=== PATIENT | female | born 1990 | race Caucasian/White ===

== ENCOUNTER 2018-05-20 19:58 | Emergency (ER) | payer OTHER ==
[~2018-05-20] VITALS: Ht 160 cm; Wt 63.5 kg
[~2018-05-20 19:58] MED LIST: ACETAMINOPHEN-1 EAC1 PO; CIPROFLOXACIN500 M1 PO; NORCO 5-325 TA1 EACH PO; PERCOCET 5-3251 EACH PO; PREDNISONE 20 M20 M1 PO; TRAMADOL 50 MG50 MG PO
[2018-05-20] MEDS ORDERED: IBUPROFEN 800800 MG PO (20:29)
[2018-05-20] MEDS ORDERED: TRAMADOL 50 MG50 MG PO (20:29)
[2018-05-20 20:38] VITALS: BP 120/78
== END 2018-05-20 20:39 | disposition home or self-care (01) ==
LOC: M.ERS 19:58
DX: S83.8X1A Sprain of other specified parts of right knee, initial encounter (principal); X58.XXXA Exposure to other specified factors, initial encounter; Y93.89 Activity, other specified; Y92.89 Other specified places as the place of occurrence of the external cause; Y99.8 Other external cause status

== ENCOUNTER 2019-09-17 14:15 | Emergency (ER) | payer OTHER ==
[~2019-09-17] VITALS: Ht 160 cm; Wt 72.6 kg
[~2019-09-17 14:15] MED LIST changes: +IBUPROFEN 800800 MG PO
[2019-09-17] MEDS ORDERED: TYLENOL WITH CO1 TA1 PO (15:40)
[2019-09-17] MEDS ORDERED: PROAIR HFA8.5 GM INH (15:40)
[2019-09-17] MEDS ORDERED: MEDROLDOSEPACK PO (15:40)
[2019-09-17] MEDS ORDERED: ZPAK PO (15:40)
[2019-09-17] MEDS ORDERED: PROMETHAZINE V120 ML PO (15:40)
[2019-09-17 15:44] LABS: INFLUENZA A ANTIGEN Negative (Negative); INFLUENZA B ANTIGEN Negative (Negative)
[2019-09-17 15:55] VITALS: BP 128/82
== END 2019-09-17 15:55 | disposition home or self-care (01) ==
LOC: M.ERS 14:15
PROVIDERS: Physician Assistant
DX: J20.9 Acute bronchitis, unspecified (principal); F17.200 Nicotine dependence, unspecified, uncomplicated; Z98.890 Other specified postprocedural states

== ENCOUNTER 2020-02-23 15:17 | Inpatient (IN) | payer OTHER ==
[~2020-02-23] VITALS: Ht 162.6 cm; Wt 78.0 kg
[~2020-02-23 15:17] MED LIST changes: +MEDROLDOSEPACK PO; +PROAIR HFA8.5 GM INH; +PROMETHAZINE V120 ML PO; +TYLENOL WITH CO1 TA1 PO; +ZPAK PO
[2020-02-23 15:19] VITALS: BP 132/82
[2020-02-23 16:00] LABS: URINE BLOOD TRACE (Negative); URINE CLARITY CLEAR; URINE COLOR YELLOW; URINE GLUCOSE-RANDOM NEGATIVE (Negative); URINE KETONES NEGATIVE (Negative); URINE LEUKOCYTES-REFLEX 1+ (Negative); URINE NITRITE-REFLEX NEGATIVE (Negative); URINE PROTEIN NEGATIVE (Negative); URINE SPECIFIC GRAVITY 1.025 (1.005-1.030)
[2020-02-23 16:02] LABS: ICTOTEST (BILI CONFIRMATORY) Negative (Negative); URINE BILIRUBIN 1+ (Negative)
[2020-02-23 16:10] LABS: CASTS None Seen /LPF (None Seen); CRYSTALS None Seen /LPF (None Seen); SQUAMOUS 0-3 Few /LPF (0-3); URINE RBC 0-2 Rare /HPF (0-2)
[2020-02-23 16:11] LABS: URINE WBC-REFLEX 6-15 Few /HPF (0-5)
[2020-02-23 16:11] LABS: ABSOLUTE BASOPHILS 0.1 thou/uL (0.0-0.2); ABSOLUTE EOSINOPHILS 0.1 thou/uL (0.0-0.7); ABSOLUTE LYMPHOCYTES 1.9 thou/uL (0.8-5.3); ABSOLUTE MONOCYTES 0.5 thou/uL (0.0-1.2); ABSOLUTE NEUTROPHILS 6.4 thou/uL (1.6-8.1); BASOPHILS 0.6 %; EOSINOPHILS 1.3 %; HEMATOCRIT 40.3 % (37.0-47.0); HEMOGLOBIN 13.8 gm/dL (12.0-15.0); MCH 29.8 pg (26.0-34.0); MCHC 34.3 g/dL (28.0-37.0); MCV 86.8 fL (80.0-100.0); MONOCYTES 5.6 %; MPV 8.4 fl. (7.2-11.1); NUCLEATED RBCS 0 /100WBC; PLATELET COUNT* 237 thou/uL (150-400); POLYS 71.5 %; RBC 4.64 mil/uL (4.20-5.00); RDW-CV 13.3 % (10.5-14.5); WBC 8.9 thou/uL (4.0-11.0)
[2020-02-23 16:19] LABS: CALCIUM 8.4 mg/dL (8.5-10.1); CREATININE 0.8 mg/dL (0.6-1.3); POTASSIUM 4.1 mmol/L (3.5-5.1)
[2020-02-23 16:24] LABS: ALBUMIN 3.7 g/dL (3.4-5.0); TOTAL BILIRUBIN 0.2 mg/dL (<0.1-1.0); TOTAL PROTEIN 8.1 g/dL (6.4-8.2)
[2020-02-23 22:41] VITALS: BP 115/77
[2020-02-23 23:00] VITALS: BP 119/68
--- NOTE | 2020-02-23 23:00 | NUR ---
RECEIVED REPORT FROM ER, ADMITTED TO ROOM. NO ACUTE DISTRESS BUT STILL HAVING ABD PAIN, MORE ON THE RIGHT SIDE. SEE ADMISSION ASSESSMENT AND HX. WILL CONT TO MONITOR AND ASSIST NEEDED.
--- NOTE | 2020-02-24 07:08 | NUR ---
C/O ABD PAIN WITH IV PAIN MED AND NAUSEA MED GIVEN X1. CONT ON NPO STATUS. GAIT STEADY TO AND FROM BR. NO CHANGE IN ASSESSMENT. HS GOALS OF REST AND SAFETY ACHIEVED. HOURLY ROUNDING OBSERVED.
[2020-02-24 07:40] VITALS: BP 93/61
[2020-02-24 08:00] VITALS: BP 101/64
[2020-02-24 11:35] VITALS: BP 110/62
[2020-02-24] MEDS ORDERED: HYDROCODON-ACE1 EAC7 PO (15:10)
[2020-02-24 15:11] VITALS: BP 110/62
[2020-02-24 16:00] VITALS: BP 97/64
--- NOTE | 2020-02-24 17:21 | NUR ---
PATIENT NPO THIS AM AND HAD LAP APPY THIS AM. PATIENT GIVEN PRN HYDROCODONE WITH GOOD RELIEF NOTED. PATIENT EATING SMALL AMOUNTS OF FOOD, NO NAUSEA NOTED. UP WITH SBA FOR FIRST TIME THEN UP AD JENNIFER NO DIFFICULTY NOTED. LAP SITES C/D/I. SPOKE WITH DR. AHUMADA THIS EVENING AND OK TO DISCHARGE HOME. PATIENT TAKEN OUT VIA WHEELCHAIR WITH NURSING STAFF AND ALL BELONGINGS.
--- NOTE | 2020-02-26 08:19 | OP ---
[facility] [address] [place] [address] OPERATIVE REPORT Name: VÍCTORVIOLETTE Ac Room: [address] IN M.R.#: [id number] Admission: 02/23/20 Attend Phys: Ruben Garcia Discharge: 02/24/20 Date of : 86 Report #: [id number] THIS REPORT FOR: //name// cc: JAVI Lyman family physician/PCP JAVI Lyman family physician/PCP ~ THIS REPORT FOR: //name// CC: JAVI physician/PCP Ruben Garcia DATE OF SERVICE: 02/24/2020 PREOPERATIVE DIAGNOSIS: Acute appendicitis. POSTOPERATIVE DIAGNOSIS: Acute appendicitis. OPERATION: Laparoscopic appendectomy. SURGEON: Ruben Garcia M.D. ANESTHESIA: General. ESTIMATED BLOOD LOSS: Minimal. SPECIMEN: Appendix. DESCRIPTION OF PROCEDURE: After informed consent was obtained, the patient was brought to the operating room and placed supine. SCDs were placed and working, preoperative antibiotics were administered, general anesthesia was induced. The abdomen was prepped and draped in the usual sterile fashion. A 10-mm incision was made below the umbilicus. Fascia was incised and a trocar was placed. Pneumoperitoneum was established. A right upper quadrant and left lower quadrant 5-mm ports were placed. The appendix was grasped and retracted anteriorly. A window was made in the mesoappendix. The mesoappendix was ligated with a KASHIF white load stapler. The base of the appendix was then stapled off with a KASHIF blue load stapler. It was then placed into an Endopouch and removed. The fascia was then closed with a fxczgy-cd-vriyz 0 Vicryl. Skin was closed with 4-0 Monocryl. Incisions were sealed with Dermabond. COMPLICATIONS: None. [facility] [address] [place] [address] OPERATIVE REPORT Name: VIOLETTE RENEE Room: [address]#: [id number] Admission: 02/23/20 Attend Phys: Ruben Garcia Discharge: 02/24/20 Date of : 86 Report #: [id number] DISPOSITION: The patient was taken to recovery in satisfactory condition. <ELECTRONICALLY SIGNED> By: Ruben Garcia MD 02/26/20 0819 [id number] [id number] Garcia MD /nt
--- NOTE | 2020-02-26 14:07 | PATH ---
[address] [address] PATHOLOGY RPT PROCEDURE Name: VIOLETTE WEI Room: [address] IN M.R.#: [id number] Admission: 02/23/20 Date of : 86 Discharge: 02/24/20 Report #: [id number] Path Case #: [id number] [facility] Accession Number: [id number] . 01 Material submitted: . appendix - APPENDIX . 01 Clinical history: . Acute appendicitis . 02 Diagnosis: Appendix: - Benign appendix with prominent, vaguely nodular endosalpingosis at tip and melanosis coli, with mild acute serositis. See comment. LBQ 02/26/2020 1034 Local . 02 Comment: There is no acute inflammation of the appendix proper. (CHARLEE/db; 02/26/2020) . 02 Electronically signed: . Jeffery Mace MD, Pathologist NPI- [id number] . 01 Gross description: . The specimen is received in formalin, labeled "Violette Wei appendix". Received is a vermiform appendix measuring 6.7 cm in length by up to 1.0 cm in diameter with a moderate amount of attached mesoappendix. The serosal surface is dusky pink-almazan and glistening in appearance. The surgical margin is closed with a line of lito. The lito are removed and the new margin is inked black. Sectioning reveals a dilated lumen filled with fecal material. The specimen is submitted representatively in cassettes A1 and A2, with the proximal margin and bisected tip submitted in cassette A1. ([facility]; 02/24/2020) . After initial microscopic examination, the remainder of the appendix is submitted from proximal to distal aspects in cassettes A3 through A6. ([facility]; 02/25/2020) QA/[facility] 02/26/2020 1031 Local . 02 Pathologist provided ICD-10: N94.89, K63.89, K65.8 . 02 CPT . 791998 Specimen Comment: A courtesy copy of this report has been sent to [phone] Specimen Comment: Report sent to Performed at: [address] [place] [address] PATHOLOGY RPT PROCEDURE Name: VIOLETTE WEI Room: [address] IN M.R.#: [id number] Admission: 02/23/20 Date of : 86 Discharge: 02/24/20 Report #: [id number] Path Case #: [id number] [facility] [place] [address], [place], [place] [id number] MD Jimbo Mahmood MD Phone: [phone] Performed at: 02 [facility] [address], [place], [place] [id number] MD Jeffery Mace MD Phone: [phone]
== END 2020-02-24 16:45 | disposition home or self-care (01) | DRG 343 ==
LOC: M.ERS 15:17 → M.TBA-ER 20:52 → M.2W 20:52
PROVIDERS: Personal Emergency Response Attendant; ADMIT Surgery
PROC: 0DTJ4ZZ Resection of Appendix, Percutaneous Endoscopic Approach (ICD-10-PCS; principal; 2020-02-24)
DX: K35.80 Unspecified acute appendicitis (principal); N83.201 Unspecified ovarian cyst, right side; F17.210 Nicotine dependence, cigarettes, uncomplicated; Z72.89 Other problems related to lifestyle; Z98.891 History of uterine scar from previous surgery; Z79.899 Other long term (current) drug therapy

== ENCOUNTER 2020-08-18 16:32 | Emergency (ER) | payer OTHER ==
[~2020-08-18] VITALS: Ht 160 cm; Wt 77.1 kg
[~2020-08-18 16:32] MED LIST changes: +HYDROCODON-ACE1 EAC7 PO
[2020-08-18] MEDS ORDERED: PREDNISONE50 MG PO (17:29)
[2020-08-18] MEDS ORDERED: FLEXERIL PO (17:29)
[2020-08-18] MEDS ORDERED: NORCO 5-325 TA1 EAC2 PO (17:29)
[2020-08-18 17:51] VITALS: BP 135/75
== END 2020-08-18 17:51 | disposition home or self-care (01) ==
LOC: M.ERS 16:32
DX: M54.42 Lumbago with sciatica, left side (principal); Z98.51 Tubal ligation status; Z90.49 Acquired absence of other specified parts of digestive tract; Z98.890 Other specified postprocedural states

== ENCOUNTER 2020-12-29 17:03 | Emergency (ER) | payer OTHER ==
[~2020-12-29] VITALS: Ht 157.5 cm; Wt 74.8 kg
[~2020-12-29 17:03] MED LIST changes: +FLEXERIL PO; +NORCO 5-325 TA1 EAC2 PO; +PREDNISONE50 MG PO
[2020-12-29] MEDS ORDERED: HYDROCODON-ACE1 EAC7 PO (17:24)
[2020-12-29] MEDS ORDERED: AUGMENTIN 875-1 EACH PO (17:24)
[2020-12-29 18:03] VITALS: BP 136/68
== END 2020-12-29 18:04 | disposition home or self-care (01) ==
LOC: M.ERS 17:03
DX: S61.210A Laceration without foreign body of right index finger without damage to nail, initial encounter (principal); Z98.51 Tubal ligation status; Z98.890 Other specified postprocedural states; Z90.49 Acquired absence of other specified parts of digestive tract; W54.0XXA Bitten by dog, initial encounter; Y93.89 Activity, other specified; Y92.89 Other specified places as the place of occurrence of the external cause; Y99.8 Other external cause status